=== PATIENT | female | born 1995 | race Two or more races ===

== ENCOUNTER 2016-07-29 12:59 | Emergency (ER) | payer MEDICAID, OTHER ==
[2016-07-29] MEDS ORDERED: METHOCARBAMOL 750 MG TABLET ONE (13:43)
[2016-07-29] MEDS ORDERED: METHYLPRED SOD SUCCINATE 125 MG VIAL ONE (13:43)
== END 2016-07-29 14:13 | disposition home or self-care (01) ==
LOC: ED 12:59
DX: M54.41 Lumbago with sciatica, right side (principal)
CPT/HCPCS: 99283 ×2; 96372; A9270; J2930